=== PATIENT | male | born 1985 | race Caucasian/White ===

== ENCOUNTER → 2023-04-15 | Outpatient (CLI) | payer BC ==
--- NOTE | 2023-04-15 13:47 | Diagnostic Imaging Report ---
EXAMINATION: Left knee 3 views HISTORY: Knee pain COMPARISON: None available. FINDINGS: There is a knee joint effusion. No fracture. Alignment is normal. Joint spaces are normal. IMPRESSION: 1. Knee joint effusion, no fracture. Dictated by: Dictated on workstation # [id number]
== END ==
LOC: ORTHO 12:42
PROVIDERS: ATTEND Orthopaedic Surgery
DX: M25.462 Effusion, left knee (principal)
CPT/HCPCS: 73562; G0463; 99203